=== PATIENT | female | born 1980 | race Caucasian/White ===

== ENCOUNTER 2017-07-23 08:42 | Emergency (ER) | payer OTHER ==
[2017-07-23 09:01] VITALS: BP 143/85
--- NOTE | 2017-07-23 09:48 | UC ---
Respiratory Complaint HPI - HPI Summary HPI Summary: Cough began , now has ear pain and lost her voice - History of Current Complaint Hx Obtained From: Patient Hx Last Menstrual Period: aug 2013 ?: No Onset/Duration: Sudden Onset, Lasting Days - 4, Worse Since - yesterday Timing: Constant Severity Initially: Mild Severity Currently: Moderate Character: Cough: Nonproductive Aggravating Factors: Nothing Alleviating Factors: Other - Ibuprofen 800 mg Associated Signs And Symptoms: Positive: URI, Nasal Congestion, Hoarseness <Vandana Rodas - Last Filed: 07/23/17 09:56> <Stefany Bernabe - Last Filed: 07/23/17 14:00> - History of Current Complaint Chief Complaint: UCRespiratory Stated Complaint: EAR ACHE, SORE THROAT, AND COUGH Time Seen by Provider: 07/23/17 09:15 - Allergies/Home Medications Allergies/Adverse Reactions: Allergies Allergy/AdvReac Type Severity Reaction Status Date / Time Penicillins Allergy Intermediate See Comment Verified 07/23/17 09:01 Adhesive Tape Allergy rash, Verified 07/23/17 09:01 itching Flu Virus Vaccine Allergy SWELLS Verified 07/23/17 09:01 Latex Allergy Rash Verified 07/23/17 09:01 Morphine Allergy Nausea And Verified 07/23/17 09:01 Vomiting PMH/Surg Hx/FS Hx/Imm Hx Previously Healthy: Yes Neurological History: Seizures Other History Of: Negative For: Anticoagulant Therapy - Surgical History Surgical History: Yes Surgery Procedure, Year, and Place: 2003, 2004,CSECTION X 2, [facility] [place]. 2009 CSECTION WITH BILATERAL TUBAL LIGATION, [facility] [place]. 2004 BILATERAL BREAST REDUCTION, [facility] [place] - Family History Known Family History: Positive: None - Social History Occupation: Unemployed Lives: With Family Alcohol Use: None Substance Use Type: None Smoking Status (MU): Former Smoker Type: Cigarettes Amount Used/How Often: 2 CIGARETTES PER DAY BY THE TIME SHE QUIT, SMOKED SINCE AGE OF 13 Have You Smoked in the Last Year: No When Did the Patient Quit Smoking/Using Tobacco: 2013 <Vandana Rodas - Last Filed: 07/23/17 09:56> Review of Systems Constitutional: Chills, Fatigue Skin: Negative Eyes: Negative ENT: Sore Throat, Ear Ache Respiratory: Cough Cardiovascular: Negative Gastrointestinal: Negative Genitourinary: Negative Motor: Negative Neurovascular: Negative Musculoskeletal: Negative Neurological: Negative Psychological: Negative Is Patient Immunocompromised?: No All Other Systems Reviewed And Are Negative: Yes <Vandana Rodas - Last Filed: 07/23/17 09:56> Physical Exam Triage Information Reviewed: Yes Appearance: No Pain Distress, Ill-Appearing - Chronic poor health, Obese Vital Signs: Initial Vital Signs Temp 98.0 F 07/23/17 08:59 Pulse 110 07/23/17 08:59 Resp 18 07/23/17 08:59 BP 143/85 07/23/17 08:59 Pulse Ox 100 07/23/17 08:59 Vital Signs Reviewed: Yes Eye Exam: Normal Eyes: Positive: Conjunctiva Clear ENT Exam: Normal ENT: Positive: Normal ENT inspection, Hearing grossly normal, Pharynx normal, TM bulging - right, TM red - right, Hoarse voice, Uvula midline. Negative: Nasal congestion, Nasal drainage, Trismus, Muffled voice, Sinus tenderness Dental Exam: Normal Neck exam: Normal Neck: Positive: Supple, Nontender, No Lymphadenopathy Respiratory Exam: Normal Respiratory: Positive: Chest non-tender, Lungs clear, Normal breath sounds, No respiratory distress, No accessory muscle use Cardiovascular Exam: Normal Cardiovascular: Positive: No Murmur, Pulses Normal, Brisk Capillary Refill, Tachycardia Musculoskeletal Exam: Normal Musculoskeletal: Positive: Strength Intact, ROM Intact, No Edema Neurological Exam: Normal Neurological: Positive: Alert, Muscle Tone Normal Psychological Exam: Normal Skin Exam: Normal <Vandana Rodas - Last Filed: 07/23/17 09:56> Vital Signs: Initial Vital Signs Temp 98.0 F 07/23/17 08:59 Pulse 110 07/23/17 08:59 Resp 18 07/23/17 08:59 BP 143/85 07/23/17 08:59 Pulse Ox 100 07/23/17 08:59 <Stefany Bernabe - Last Filed: 07/23/17 14:00> UC Diagnostic Evaluation - Laboratory O2 Sat by Pulse Oximetry: 100 <Vandana Rodas - Last Filed: 07/23/17 09:56> Respiratory Course/Dx - Course Course Of Treatment: Zithromax, Albuterol, Continue Ibuprofen follow blood pressure with pcp - Differential Dx/Diagnosis Provider Diagnoses: Right otitis Media, laryngitis, Bronchitis <Vandana Rodas - Last Filed: 07/23/17 09:56> Discharge <Vandana Rodas - Last Filed: 07/23/17 09:56> <Stefany Bernabe - Last Filed: 07/23/17 14:00> - Discharge Plan Condition: Stable Disposition: HOME Prescriptions: Albuterol HFA INHALER* [Ventolin HFA Inhaler*] 1 - 2 puff INH Q4H PRN #1 mdi PRN Reason: Sob/Wheezing Azithromycin TAB* [Zithromax TAB (Z-CECILIA) 250 mg #6 tabs] 2 tab PO .TODAY, THEN 1 DAILY #1 cecilia Patient Education Materials: Ibuprofen (By mouth), Laryngitis (ED), Otitis Media (ED), Hypertension (ED), Bronchospasm (ED) Referrals: [facility] PHYSICIAN REFERRAL [Outside] - 2 Weeks Attestation Statement User Type: Provider - I was available for consult. This patient was seen by the KASIE. The patient was not presented to, seen by, or examined by me. -Trang <Stefany Bernabe - Last Filed: 07/23/17 14:00>
== END 2017-07-23 10:00 | disposition home or self-care (01) ==
LOC: UCEAST 08:42
DX: H66.91 Otitis media, unspecified, right ear (principal); J04.0 Acute laryngitis; J40 Bronchitis, not specified as acute or chronic
CPT/HCPCS: 99212; G0463

== ENCOUNTER 2019-09-16 10:48 | Emergency (ER) | payer OTHER ==
[2019-09-16 11:20] VITALS: BP 127/72
--- NOTE | 2019-09-16 11:28 | UC ---
Throat Pain/Nasal [place] HPI - HPI Summary HPI Summary: sore throat x 2 days pain is severe 7 out of 10 dry cough , nasal congestion ,pnd subjective fever, chills, joint pain and body aches - History of Current Complaint Chief Complaint: UCGeneralIllness Stated Complaint: FLU SYMP Time Seen by Provider: 09/16/19 11:08 Hx Obtained From: Patient Hx Last Menstrual Period: aug 2013 ?: No Onset/Duration: Gradual Onset, Lasting Days - 2, Still Present Severity: Severe Pain Intensity: 8 Cough: Nonproductive Associated Signs & Symptoms: Positive: Nasal Discharge, Fever. Negative: Wheezing, Vomiting, Rash - Allergies/Home Medications Allergies/Adverse Reactions: Allergies Allergy/AdvReac Type Severity Reaction Status Date / Time Penicillins Allergy Intermediate See Comment Verified 09/16/19 11:15 adhesive tape Allergy Rash And Verified 09/16/19 11:15 Itching latex Allergy Rash Verified 09/16/19 11:15 morphine Allergy Nausea And Verified 09/16/19 11:15 Vomiting FLU VIRUS VACCINE Allergy Swelling Uncoded 09/16/19 11:15 Home Medications: Home Medications Omeprazole 40 mg PO DAILY 09/16/19 [History Confirmed 09/16/19] buPROPion TAB* [Wellbutrin TAB*] 100 mg PO BID 09/16/19 [History Confirmed 09/16] PMH/Surg Hx/FS Hx/Imm Hx Respiratory History: COPD, Asthma Neurological History: Seizures Other History Of: Negative For: Anticoagulant Therapy - Surgical History Surgical History: Yes Surgery Procedure, Year, and Place: 2003, 2004,CSECTION X 2, [facility] [place]. 2009 CSECTION WITH BILATERAL TUBAL LIGATION, [facility] [place]. 2004 BILATERAL BREAST REDUCTION, [facility] [place]. UTERINE ABLATION 2016. ACL REPAIR RIGHT KNEE - Family History Known Family History: Positive: None, Non-Contributory - Social History Alcohol Use: None Substance Use Type: Marijuana Substance Use Comment - Amount & Last Used: daily; recovering opiate addict Smoking Status (MU): Former Smoker Type: Cigarettes Amount Used/How Often: 6 cigarettes daily Have You Smoked in the Last Year: No When Did the Patient Quit Smoking/Using Tobacco: 2013 Review of Systems All Other Systems Reviewed And Are Negative: Yes Constitutional: Positive: Fever, Chills, Fatigue Skin: Positive: Negative Eyes: Positive: Negative ENT: Positive: Sore Throat, Nasal Discharge Respiratory: Positive: Cough Is Patient Immunocompromised?: No Physical Exam Triage Information Reviewed: Yes Appearance: Well-Appearing, No Pain Distress, Well-Nourished Vital Signs: Initial Vital Signs Temp 98.3 F 09/16/19 11:11 Pulse 88 09/16/19 11:11 Resp 17 09/16/19 11:11 BP 127/72 09/16/19 11:11 Pulse Ox 97 09/16/19 11:11 Vital Signs Reviewed: Yes Eye Exam: Normal Eyes: Positive: Conjunctiva Clear ENT: Positive: Normal ENT inspection, Hearing grossly normal, Pharynx normal, Nasal congestion, TMs normal Neck: Positive: Supple, Nontender, No Lymphadenopathy Respiratory: Positive: Chest non-tender, Lungs clear, Normal breath sounds Cardiovascular: Positive: RRR, No Murmur, Pulses Normal Skin Exam: Normal Throat Pain/Nasal Course/Dx - Differential Dx/Diagnosis Provider Diagnosis: URI (upper respiratory infection) Discharge ED - Sign-Out/Discharge Documenting (check all that apply): Patient Departure All imaging exams completed and their final reports reviewed: No Studies - Discharge Plan Condition: Stable Disposition: HOME Patient Education Materials: Upper Respiratory Infection (ED) Forms: *Work Release Referrals: No Primary Care Phys,NOPCP [Primary Care Provider] - If Needed - Billing Disposition and Condition Condition: STABLE Disposition: Home
[2019-09-16 11:37] LABS: Influenza A Molecular NEGATIVE (Negative); Influenza B Molecular NEGATIVE (Negative)
--- OUTSIDE RECORDS SUMMARY | 2019-09-16 12:01 | XMS REPORT | Continuity of Care Document ---
:1980 External Reference #:[id number] Author Name Catalina Jeffries M.D. 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 Onset: 08/25/2019 Social History Type Date Description Comments Sex Unknown ETOH Use Denies alcohol use Tobacco Use Start: Unknown End: Patient is a former Unknown smoker Recreational Drug Use Marijuana Tobacco Use Start: Unknown Patient is a current 6 cigarettes a day smoker, smokes every day Smoking Status Reviewed: 09/01/19 Patient is a current 6 cigarettes a day smoker, smokes every day Allergies, Adverse Reactions, Alerts Active Allergies Reaction Severity Comments Date Morphine Vomiting Moderate 08/25/2019 Penicillin G "Body Feels Like Its Moderate 08/25/2019 Burning" Adhesives Moderate 08/25/2019 Latex Moderate 08/25/2019 Influenza A Virus Vaccine, Severe 08/25/2019X-Nbjjkpdk-219 (H3N2)-Like Virus Medications Active Medications SIG Qnty Indications Ordering Provider Date Epitol Take 1 tablet Unknown 200mg Tablets twice daily Bupropion Hydrochloride 1 tablet twice Unknown ER (SR) daily 200mg Tablets ER 12HR Omeprazole PT reports she Daryl, 40mg Capsules takes 100 mg a Mable Lantigua NP day, but can not find 100 mg dose in computer History Medications Sulfamethoxazole/Trimethoprim DS 2 Times A Day 14tabs Unknown 08/24/2019 - 800-160mg Tablets 09/15/2019 Immunizations Description No Information Available Vital Signs Date Vital Result Comment 09/15/2019 2:10pm Body Temperature 98.0 F Heart Rate 93 /min Respiratory Rate 16 /min Height 63 inches 5'3" Pt stated Weight 218.50 lb Pain Level 0 BMI (Body Mass Index) 38.7 kg/m2 BSA (Body Surface Area) 2.01 m2 Jber body weight in kilograms 52 kg O2 % BldC Oximetry 97 % 08/25/2019 2:07pm BP Systolic Sitting Left Arm 118 mmHg BP Diastolic Sitting Left Arm 71 mmHg Body Temperature 98.6 F Heart Rate 92 /min Respiratory Rate 16 /min Weight 221.00 lb Pain Level 3 O2 % BldC Oximetry 98 % Results Test Acquired Facility Test Result H/L Range Note Date pH Ur Strip.auto 08/24/2019 N2N/CCD Import Urine pH 6.5 6.5-7.5 Prot Ur Ql 08/24/2019 N2N/CCD Import Urine Protein Negative Negative Strip.auto Urobilinogen Ur 08/24/2019 N2N/CCD Import Urine Urobilinogen < 2.0 < 2.0 Ql Strip.auto Nitrite Ur Ql 08/24/2019 N2N/CCD Import Urine Nitrite Negative Negative Strip.auto Leukocyte 08/24/2019 N2N/CCD Import Urine Leukocyte Trace High Negative esterase Ur Ql Esterase Strip.auto Lab Results 08/24/2019 N2N/CCD Import Urine RBC 0-2 0-2 WBC #/area UrnS 08/24/2019 N2N/CCD Import Urine WBC 3-5 0-5 HPF Squamous Ur Ql 08/24/2019 N2N/CCD Import Urine Epithelial Many None Seen Auto Cells Mucous Threads 08/24/2019 N2N/CCD Import Urine Mucus Small None Seen Ur Ql Auto Glucose 08/24/2019 N2N/CCD Import Glucose Screen 85 74-106 SerPl-nc BUN SerPl-nc 08/24/2019 N2N/CCD Import Blood Urea 15 7-18 Nitrogen Creat SerPl-nc 08/24/2019 N2N/CCD Import Creatinine 1.0 0.6-1.3 GFR/Bsa pred.non 08/24/2019 N2N/CCD Import Estimated GFR >60 >60 black SerPl (Non- MDRD-ArVRat [place] GFR/Bsa 08/24/2019 N2N/CCD Import Estimated GFR >60 >60 pred.black SerPl () MDRD-ArVRat BUN/Creat SerPl 08/24/2019 N2N/CCD Import BUN/Creatinine 15.0 Ratio Sodium 08/24/2019 N2N/CCD Import Sodium Level 138 136-145 SerPl-sCnc Potassium 08/24/2019 N2N/CCD Import Potassium Level 3.8 3.5-5.1 SerPl-sCnc Chloride 08/24/2019 N2N/CCD Import Chloride Level 108 High 98-107 SerPl-sCnc Co2 SerPl-sCnc 08/24/2019 N2N/CCD Import Carbon Dioxide 27 21-32 Level Anion Gap 08/24/2019 N2N/CCD Import Anion Gap 3 Low 8-16 SerPl-sCnc Calcium 08/24/2019 N2N/CCD Import Calcium Level 8.5 8.5-10.1 SerPl-mCnc Prot SerPl-mCnc 08/24/2019 N2N/CCD Import Total Protein 7.1 6.4-8.2 Albumin 08/24/2019 N2N/CCD Import Albumin 3.3 Low 3.4-5.0 SerPl-nc Globulin Ser 08/24/2019 N2N/CCD Import Globulin 3.8 1.9-4.3 Calc-nc Albumin/Glob 08/24/2019 N2N/CCD Import Albumin/Globulin 0.9 SerPl Ratio Bilirub 08/24/2019 N2N/CCD Import Total Bilirubin 0.3 0.2-1.0 SerPl-nc Ast SerPl-cCnc 08/24/2019 N2N/CCD Import Aspartate Amino 16 15-37 Transf (Ast/Sgot) Alt SerPl-cCnc 08/24/2019 N2N/CCD Import Alanine 23 12-78 Aminotransferase (Alt/SGPT) Alp SerPl-cCnc 08/24/2019 N2N/CCD Import Alkaline 57 45-117 Phosphatase Lipase 08/24/2019 N2N/CCD Import Lipase 153 56-289 SerPl-cCnc WBC # XXX Auto 08/24/2019 N2N/CCD Import White Blood Count 5.9 3.1-10.7 RBC # Bld Auto 08/24/2019 N2N/CCD Import Red Blood Count 4.88 3.90-5.40 Hgb Bld-mCnc 08/24/2019 N2N/CCD Import Hemoglobin 13.9 11.6-15.8 Hct VFr Bld Auto 08/24/2019 N2N/CCD Import Hematocrit 42.0 36.0-46.1 MCV RBC Auto 08/24/2019 N2N/CCD Import Mean Corpuscular 86.1 80.9-99.0 Volume MCH RBC Qn Auto 08/24/2019 N2N/CCD Import Mean Corpuscular 28.5 25.9- 32.7 Hemoglobin MCHC RBC 08/24/2019 N2N/CCD Import Mean Corpuscular 33.1 30.8-34.3 Auto-mCnc Hemoglobin Concent Platelet # Bld 08/24/2019 N2N/CCD Import Platelet Count 246 155-360 Auto RDW RBC Auto 08/24/2019 N2N/CCD Import Red Cell 40.1 36-47 Distribution Width RDW RBC Auto-Rto 08/24/2019 N2N/CCD Import RDW Coefficient of 12.9 11.7- 14.4 Variation PMV Bld Auto 08/24/2019 N2N/CCD Import Mean Platelet 10.3 8.9-12.4 Volume Neutrophils/leuk 08/24/2019 N2N/CCD Import Neutrophils (%) 51.3 40.4- 72.8 NFr Bld Auto (Auto) Lymphocytes/leuk 08/24/2019 N2N/CCD Import Lymphocytes (%) 38.1 20.0- 42.0 NFr Bld Auto (Auto) Monocytes/leuk 08/24/2019 N2N/CCD Import Monocytes (%) 7.9 4.3-13.2 NFr Bld Auto (Auto) Eosinophil/leuk 08/24/2019 N2N/CCD Import Eosinophils (%) 1.9 0.0-6.6 NFr Bld Auto (Auto) Basophils/leuk 08/24/2019 N2N/CCD Import Basophils (%) 0.5 0.0-1.1 NFr Bld Auto (Auto) Imm 08/24/2019 N2N/CCD Import Immature 0.3 0.0-5.0 Granulocytes/[place] Granulocyte % k NFr Bld Auto (Auto) nRBC/100 WBC Bld 08/24/2019 N2N/CCD Import Nucleated Red 0.0 < 10/ 100 Auto-Rto Blood Cells % WBC (auto) Neutrophils # 08/24/2019 N2N/CCD Import Neutrophils # 3.04 1.8-7.0 Bld Auto (Auto) Lymphocytes # 08/24/2019 N2N/CCD Import Lymphocytes # 2.26 1.0-4.0 Bld Auto (Auto) Monocytes # Bld 08/24/2019 N2N/CCD Import Monocytes # (Auto) 0.47 0.3- 0.9 Auto Eosinophil # Bld 08/24/2019 N2N/CCD Import Eosinophils # 0.11 0.0-0.5 Auto (Auto) Basophils # Bld 08/24/2019 N2N/CCD Import Basophils # (Auto) 0.03 0.0- 0.1 Auto Imm Granulocytes 08/24/2019 N2N/CCD Import Immature 0.02 # Bld Auto Granulocyte # (Auto) nRBC # Bld Auto 08/24/2019 N2N/CCD Import Nucleated RBC 0.00 Absolute Count (auto) Color Ur Auto 08/24/2019 N2N/CCD Import Urine Color Colorless Yellow Appearance Ur 08/24/2019 N2N/CCD Import Urine Clarity Clear Clear Glucose Ur Ql 08/24/2019 N2N/CCD Import Urine Glucose (Ua) Negative Negative Strip.auto Bilirub Ur Ql 08/24/2019 N2N/CCD Import Urine Bilirubin Negative Negative Strip.auto Ketones Ur Ql 08/24/2019 N2N/CCD Import Urine Ketones Negative Negative Strip.auto Sp Gr Ur 08/24/2019 N2N/CCD Import Urine Specific 1.022 1.010-1.03 Refractometry [place] 0 Hgb Ur Ql 08/24/2019 N2N/CCD Import Urine Blood Negative Negative Strip.auto Procedures Description No Information Available Medical Devices Description No Information Available Encounters Type Date Location Provider Dx Diagnosis Office Visit 08/25/2019 2:00p Urology Catalina Jeffries M.D. N20.0 Calculus of kidney Assessments Date Code Description Provider 09/15/2019 N20.0 Calculus of kidney Catalina Jeffries M.D. 08/25/2019 N20.0 Calculus of kidney Catalina Jeffries M.D. Plan of Treatment Future Appointment(s):03/15/2020 10:45 am - Catalina Jeffries M.D. at Urology Functional Status Description No Information Available Mental Status Description No Information Available Referrals Description No Information Available
--- OUTSIDE RECORDS SUMMARY | 2019-09-16 12:01 | XMS REPORT | Continuity of Care Document ---
:1980 External Reference #:[id number] Author Name Travis Ambrocio NP (transmitted by agent of provider Ariadna Cuevas) Address [address] [place] [address] Problems Description No Information Available Social History Type Date Description Comments Sex Unknown ETOH Use Denies alcohol use Recreational Drug Use Former Drug User opiates abuse Tobacco Use Start: Unknown End: Patient is a former quit in 2013 Unknown smoker Smoking Status Reviewed: 08/13/19 Patient is a former quit in 2013 smoker Exercise Type/Frequency Does not exercise Allergies, Adverse Reactions, Alerts Active Allergies Reaction Severity Comments Date Penicillins 09/15/2013 Adhesive Tape 09/15/2013 Morphine Abdominal pain Moderate 08/01/2019 Influenza swelling Moderate 08/01/2019 L-Fhguzqvfxy-7-2009-(H1N1)V-Like Virus Vaccine / Influenza B Virus Vaccine B/[place] Antigen / Influenza Virus Vaccine, Live Attenuated, T-Otzts-22 (H3N2) Strain Medications Active Medications SIG Qnty Indications Ordering Provider Date Levetiracetam 1 by mouth twice 60tabs Jarred Jon, 08/13/2019 500mg a day M.D. Tablets Diazepam take one tablet 2tabs R51 Jarred Jon, 08/13/2019 5mg Tablets by mouth one M.D. hour prior to mri. take second tablet 30 minutes prior to mri. mdd 2 Levetiracetam take 1 tablet by 60tabs G40.909 Jarred Jon, 08/13/2019 500mg mouth in the M.D. Tablets morning, and one tablet at night. Omeprazole 1 by mouth every Unknown 40mg Capsules day DR Bupropion 1 tabs by mouth Unknown Hydrochloride ER (SR) twice a day 150mg Tablets ER 12HR Immunizations Description No Information Available Vital Signs Date Vital Result Comment 08/13/2019 8:39am Height 63.25 inches 5'3.25" Weight 220.00 lb Heart Rate 88 /min BP Systolic 118 mmHg BP Diastolic 84 mmHg BMI (Body Mass Index) 38.7 kg/m2 Results Description No Information Available Procedures Description No Information Available Medical Devices Description No Information Available Encounters Description No Information Available Assessments Date Code Description Provider 08/13/2019 G40.909 Epilepsy, unspecified, not intractable, without Travis Ambrocio NP status epilepticus 08/13/2019 R51 Headache Travis Ambrocio NP Plan of Treatment Future Appointment(s):09/16/2019 10:30 am - Travis Ambrocio NP at [facility]08/13/2019 - Travis Ambrocio NPG40.909 Epilepsy, unspecified, not intractable, without status epilepticusNew Medication: Levetiracetam 500 mg - take 1 tablet by mouth in the morning, and one tablet at night.New Orders:EEG, Routine, Ordered: 08/13/19R51 HeadacheNew Medication: Diazepam 5 mg - take one tablet by mouth one hour prior to mri. take second tablet 30 minutes prior to mri. mdd 2New Xrays:MRI Brain W/O, Ordered: Follow up:ONE MONTH Functional Status Description No Information Available Mental Status Description No Information Available Referrals Description No Information Available
--- OUTSIDE RECORDS SUMMARY | 2019-09-16 12:01 | XMS REPORT | Continuity of Care Document ---
:1980 External Reference #:[id number] Author Name Catalina Jeffries M.D. 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 Onset: 08/25/2019 Social History Type Date Description Comments Sex Unknown ETOH Use Denies alcohol use Tobacco Use Start: Unknown End: Unknown Patient is a former smoker Recreational Drug Use Marijuana Smoking Status Reviewed: 08/25/19 Patient is a former smoker Allergies, Adverse Reactions, Alerts Active Allergies Reaction Severity Comments Date Morphine Vomiting Moderate 08/25/2019 Penicillin G "Body Feels Like Its Moderate 08/25/2019 Burning" Adhesives Moderate 08/25/2019 Latex Moderate 08/25/2019 Influenza A Virus Vaccine, Severe 08/25/2019 [id number]-843 (H3N2)-Like Virus Medications Active Medications SIG Qnty Indications Ordering Provider Date Sulfamethoxazole/Trimet 2 Times A Day 14tabs Unknown 08/24/2019 hoprim DS 800-160mg Tablets Epitol Take 1 tablet Unknown 200mg Tablets twice daily [facility] Omeprazole 1 by mouth Unknown 20mg Tablets twice daily DR Bupropion Hydrochloride 1 tablet twice Unknown ER (SR) daily 200mg Tablets ER 12HR Immunizations Description No Information Available Vital Signs Date Vital Result Comment 08/25/2019 2:07pm BP Systolic Sitting Left Arm 118 mmHg BP Diastolic Sitting Left Arm 71 mmHg Body Temperature 98.6 F Heart Rate 92 /min Respiratory Rate 16 /min Weight 221.00 lb Pain Level 3 O2 % BldC Oximetry 98 % Results Test Acquired Facility Test Result H/L Range Note Date Hgb Ur Ql 08/24/2019 N2N/CCD Import Urine Blood Negative Negative Strip.auto pH Ur Strip.auto 08/24/2019 N2N/CCD Import Urine [...] 08/24/2019 N2N/CCD Import Glucose Screen 85 74-106 SerPl-mCnc BUN SerPl-mCnc 08/24/2019 N2N/CCD Import Blood Urea 15 7-18 Nitrogen Creat SerPl-mCnc 08/24/2019 N2N/CCD Import Creatinine 1.0 0.6-1.3 GFR/Bsa pred.non 08/24/2019 N2N/CCD Import Estimated GFR >60 >60 black SerPl (Non- MDRD-ArVRat [place] GFR/Bsa 08/24/2019 N2N/CCD Import Estimated GFR >60 [...] 08/24/2019 N2N/CCD Import Albumin 3.3 Low 3.4-5.0 SerPl-mCnc Globulin Ser 08/24/2019 N2N/CCD Import Globulin 3.8 1.9-4.3 Calc-mCnc Albumin/Glob 08/24/2019 N2N/CCD Import Albumin/Globulin 0.9 SerPl Ratio Bilirub 08/24/2019 N2N/CCD Import Total Bilirubin 0.3 0.2-1.0 SerPl-mCnc Ast SerPl-cCnc 08/24/2019 N2N/CCD Import Aspartate Amino [...] N2N/CCD Import Urine Specific 1.022 1.010-1.03 Refractometry [place] 0 Procedures Description No Information Available Medical Devices Description No Information Available Encounters Type Date Location Provider Dx Diagnosis Office Visit 08/25/2019 2:00p Urology Catalina Jeffries M.D. N20.0 Calculus of kidney Assessments Date Code Description Provider 08/25/2019 N20.0 Calculus of kidney Catalina Jeffries M.D. Plan of Treatment Future Appointment(s):09/15/2019 2:00 pm - Catalina Jeffries M.D. at Urology Functional Status Description No Information Available Mental Status Description No Information Available Referrals Description No Information Available
== END 2019-09-16 11:42 | disposition home or self-care (01) ==
LOC: UCCORT 10:48
DX: J06.9 Acute upper respiratory infection, unspecified (principal); J44.9 Chronic obstructive pulmonary disease, unspecified; Z87.891 Personal history of nicotine dependence; Z88.0 Allergy status to penicillin; Z91.040 Latex allergy status; Z88.5 Allergy status to narcotic agent; Z88.7 Allergy status to serum and vaccine; Z91.09 Other allergy status, other than to drugs and biological substances
CPT/HCPCS: 99211; G0463